=== PATIENT | female | born 1980 | race Caucasian/White ===

== ENCOUNTER → 2021-10-20 | Emergency (ER) | payer OTHER ==
[~2021-10-20] MED LIST: CEFTIN500 MG PO
== END | disposition left against medical advice (07) ==
LOC: ER 18:59
DX: Z53.21 Procedure and treatment not carried out due to patient leaving prior to being seen by health care provider (principal)

== ENCOUNTER 2022-11-28 21:36 | Inpatient (IN) | payer OTHER ==
[~2022-11-28] VITALS: Ht 170.2 cm; Wt 61.7 kg
[2022-12-04] MEDS ORDERED: AMLODIPINE BESYL5 MG PO (09:33)
[2022-12-04] MEDS ORDERED: LOSARTAN POTAS100 MG PO (09:33)
[2022-12-04] MEDS ORDERED: NAPR500T14 PO (09:33)
[2022-12-04] MEDS ORDERED: COLACE100 MG PO (09:34)
== END 2022-12-04 11:50 | disposition home or self-care (01) | DRG 305 ==
LOC: ER 21:36 → OB/GYN 11-29 16:39
PROVIDERS: ADMIT Student in an Organized Health Care Education/Training Program; ATTEND Student in an Organized Health Care Education/Training Program
PROC: BU4CZZZ Ultrasonography of Uterus and Ovaries (ICD-10-PCS; principal; 2022-11-29)
PROC: BW21ZZZ Computerized Tomography (CT Scan) of Abdomen and Pelvis (ICD-10-PCS; 2022-11-29)
DX: I16.9 Hypertensive crisis, unspecified (principal); R10.32 Left lower quadrant pain; Z20.822 Contact with and (suspected) exposure to COVID-19

== ENCOUNTER 2022-12-18 08:41 | Inpatient (IN) | payer OTHER ==
[~2022-12-18] VITALS: Ht 167.6 cm; Wt 59.9 kg
[~2022-12-18 08:41] MED LIST changes: +AMLODIPINE BESYL5 MG PO; +COLACE100 MG PO; +LOSARTAN POTAS100 MG PO; +NAPR500T14 PO
[2022-12-18 11:06] LABS: INR 0.99; PARTIAL THROMBOPLASTIN TIME 25.4 SECONDS (22.0-34.0); PROTHROMBIN TIME 10.4 SECONDS (9.0-11.5)
[2022-12-22 01:01] LABS: HEMATOCRIT 36.8 % (36.0-45.00); MEAN CELL VOLUME 92.1 fL (80.00-100.00); MEAN CORPUSCULAR HEMOGLOBIN 29.2 pg (27.00-32.0); MEAN CORPUSCULAR HGB CONC 31.8 g/dl (32.0-36.0); PLATELET COUNT 314 K/uL (150-450); RED CELL DISTRIBUTION WIDTH 13.5 % (11.5-14.5)
[2022-12-22 01:14] LABS: HEMOGLOBIN 11.7 g/dL (12.0-15.00)
[2022-12-22 06:46] LABS: HEMATOCRIT 37.8 % (36.0-45.00); HEMOGLOBIN 12.8 g/dL (12.0-15.00); MEAN CELL VOLUME 92.3 fL (80.00-100.00); MEAN CORPUSCULAR HEMOGLOBIN 31.3 pg (27.00-32.0); MEAN CORPUSCULAR HGB CONC 33.9 g/dl (32.0-36.0); PLATELET COUNT 304 K/uL (150-450); RED CELL DISTRIBUTION WIDTH 13.6 % (11.5-14.5)
[2022-12-23] MEDS ORDERED: POLY119PG PO (06:48)
[2022-12-23] MEDS ORDERED: GABAPENTIN300 MG PO (06:48)
[2022-12-23] MEDS ORDERED: PAIN RELIEVER500 M2 PO (06:48)
== END 2022-12-23 09:21 | disposition home or self-care (01) | DRG 743 ==
LOC: O/R 12-21 05:23 → OB/GYN 12-21 08:45
PROVIDERS: ADMIT Obstetrics & Gynecology; ATTEND Obstetrics & Gynecology
PROC: 0UT10ZZ Resection of Left Ovary, Open Approach (ICD-10-PCS; principal; 2022-12-21 18:30)
DX: N83.512 Torsion of left ovary and ovarian pedicle (principal); Z20.822 Contact with and (suspected) exposure to COVID-19